=== PATIENT | male | born 1955 | race Caucasian/White ===

== ENCOUNTER → 2019-11-22 | Outpatient (CLI) | payer MEDICARE | END | disposition home or self-care (01) | LOC: EDBD → OIH 08:16 | PROVIDERS: ATTEND Internal Medicine | DX: M47.816 Spondylosis without myelopathy or radiculopathy, lumbar region (principal); M48.061 Spinal stenosis, lumbar region without neurogenic claudication; M25.78 Osteophyte, vertebrae; M75.101 Unspecified rotator cuff tear or rupture of right shoulder, not specified as traumatic | CPT/HCPCS: 72100; 73030 ==

== ENCOUNTER 2020-01-27 12:54 | Inpatient (IN) | payer MEDICARE ==
[~2020-01-27] VITALS: Ht 185.4 cm; Wt 104.2 kg
[2020-01-27] MEDS ORDERED: ONDANSETRON HCL 4 MG/2 ML VIAL ONE (13:09)
[2020-01-27] MEDS ORDERED: MORPHINE SULFATE 4 MG/1ML SYG ONE ×3 (13:09→15:10)
[2020-01-27 13:38] LABS: BASOPHILS % (AUTO) 0.4 % (0.0-5.0); EOSINOPHILS % (AUTO) 0.9 % (0.0-8.0); HEMATOCRIT 39.1 % (42-54); LYMPHOCYTES % (AUTO) 35.6 % (21.0-51.0); MEAN CORPUSCULAR HEMOGLOBIN 32.3 pg (27.0-33.0); MEAN CORPUSCULAR HGB CONC 35.5 g/dL (32.0-36.0); MEAN CORPUSCULAR VOLUME 90.7 fL (79-99); NEUTROPHILS % (AUTO) 54.6 % (40.0-77.0); PLATELET COUNT (AUTO) 302 K/uL (130-400); RED BLOOD CELL COUNT(AUTO) 4.31 MIL/uL (4.50-6.20); RED CELL DISTRIBUTION WIDTH 13.9 % (11.0-15.5)
[2020-01-27] MEDS ORDERED: DIAZEPAM 5 MG/ML 2 ML SYG ONE (13:59)
[2020-01-27] MEDS ORDERED: DIAZEPAM 5 MG/ML 2 ML SYG IVP ONE (14:00)
[2020-01-27 14:03] LABS: CREATININE 1.4 mg/dL (0.5-1.5); POTASSIUM 3.4 mmol/L (3.5-5.1)
[2020-01-27 14:04] LABS: INR 0.96 (0.85-1.15); PARTIAL THROMBOPLASTIN TIME 26.4 SEC (26.3-35.5); PROTHROMBIN TIME 10.4 SEC (9.6-11.6)
[2020-01-27] MEDS ORDERED: KETOROLAC TROMETHAMINE 15MG/ML ONE (15:09)
[2020-01-27] MEDS: LACTATED RINGERS 1000ML 1,000 ML IV SCH (15:10)
[2020-01-27] MEDS ORDERED: ACETAMINOPHEN-CODEINE 300/30MG TAB PO PRN (15:15)
[2020-01-27] MEDS ORDERED: POTASSIUM CHLORIDE 20MEQ/100ML 100 ML IV PRN (15:15)
[2020-01-27] MEDS ORDERED: MORPHINE SULFATE 2 MG/ML 1ML SYG IV PRN (15:15)
[2020-01-27] MEDS ORDERED: POTASSIUM CHLORIDE 10% ELIXIR 20 MEQ/15 ML UDCUP PO PRN (15:15)
[2020-01-27] MEDS ORDERED: ACETAMINOPHEN 325 MG TAB PO PRN ×2 (15:15)
[2020-01-27] MEDS ORDERED: MAGNESIUM 2GM PREMIX 50ML 50 ML IV PRN (15:15)
[2020-01-27] MEDS ORDERED: ZOLPIDEM TARTRATE 5 MG TAB PO PRN (15:15)
[2020-01-27] MEDS ORDERED: LACTULOSE 20 GM/30 ML UDCUP PO PRN (15:15)
[2020-01-27] MEDS ORDERED: HYDRALAZINE HCL 20 MG/ML VIAL IV PRN (15:15)
[2020-01-27] MEDS ORDERED: POTASSIUM CHLORIDE 20 MEQ ERTAB PO PRN (15:15)
[2020-01-27] MEDS ORDERED: ONDANSETRON HCL 4 MG/2 ML VIAL IV PRN (15:15)
[2020-01-27] MEDS ORDERED: DiphenhydrAMINE HCL 50 MG/ML VIAL IV PRN (15:15)
[2020-01-27] MEDS ORDERED: LIDOCAINE HCL-MPF 1% 2ML VIAL IV PRN (15:15)
[2020-01-27] MEDS ORDERED: MAG HYDROX/AL HYDROX/SIMETH ES 30 ML SUSP UDCUP PO PRN (15:15)
[2020-01-27] MEDS ORDERED: DIPHENHYDRAMINE HCL 25 MG CAPSULE PO PRN (15:15)
[2020-01-27] MEDS ORDERED: POTASSIUM CHLORIDE 20 MEQ ERTAB PO ONE (15:43)
[2020-01-27] MEDS ORDERED: LACTATED RINGERS 1000ML 1,000 ML IV ONE (15:45)
[2020-01-27 17:00] VITALS: BP 128/79
[2020-01-27] MEDS: MORPHINE SULFATE 4 MG/1ML SYG IV PRN ×2 (17:47→23:20)
[2020-01-27 20:04] VITALS: BP 102/76
[2020-01-28] VITALS (25 sets, daily range): BP systolic 76–117; BP diastolic 41–80
[2020-01-28] MEDS: MORPHINE SULFATE 4 MG/1ML SYG IV PRN (03:59)
[2020-01-28 05:33] LABS: MAGNESIUM 1.6 mg/dL (1.80-2.40); THYROID STIMULATING HORMONE 1.79 uIU/mL (0.36-3.74)
[2020-01-28 08:44] LABS: MEAN CORPUSCULAR HEMOGLOBIN 31.7 pg (27.0-33.0); MEAN CORPUSCULAR HGB CONC 33.6 g/dL (32.0-36.0); MEAN CORPUSCULAR VOLUME 94.2 fL (79-99); PLATELET COUNT (AUTO) 210 K/uL (130-400); RED BLOOD CELL COUNT(AUTO) 3.82 MIL/uL (4.50-6.20); RED CELL DISTRIBUTION WIDTH 14.4 % (11.0-15.5); WHITE BLOOD COUNT (AUTO) 7.6 K/uL (4.8-10.8)
[2020-01-28] MEDS ORDERED: MAGNESIUM 2GM PREMIX 50ML 50 ML IV SCH (08:45)
[2020-01-28] MEDS: FAMOTIDINE/PF 20 MG/2 ML VIAL IV SCH (09:02)
[2020-01-28 09:10] LABS: CREATININE 1.1 mg/dL (0.5-1.5); POTASSIUM 4.3 mmol/L (3.5-5.1)
[2020-01-28] MEDS: LACTATED RINGERS 1000ML 1,000 ML IV SCH ×4 (11:10→21:25)
[2020-01-28] MEDS ORDERED: SUCCINYLCHOLINE CHLORIDE 20 MG/ML 10 ML VIAL ONE (12:19)
[2020-01-28] MEDS ORDERED: LIDOCAINE PF 2% 5ML ABBOJECT ONE (12:19)
[2020-01-28] MEDS ORDERED: ROCURONIUM 10MG/1ML SYR 10 MG/ML ML ONE (12:20)
[2020-01-28] MEDS ORDERED: FENTANYL CITRATE PF 50 MCG/1 ML 2ML VIAL ONE (12:20)
[2020-01-28] MEDS ORDERED: PROPOFOL 10 MG/ML 20ML VIAL IV ONE (12:20)
[2020-01-28] MEDS: CEFAZOLIN SODIUM 1 GM VIAL IVP SCH ×3 (12:45→21:23)
[2020-01-28] MEDS ORDERED: BUPIVACAINE/PF 0.5% 30ML VIAL ONE (12:54)
[2020-01-28] MEDS ORDERED: EPHEDRINE SULFATE 50 MG/ML AMPULE ONE (13:15)
[2020-01-28] MEDS ORDERED: ONDANSETRON HCL 4 MG/2 ML VIAL ONE (13:18)
[2020-01-28] MEDS ORDERED: GLYCOPYRROLATE 1 MG/5 ML SYRINGE ONE (13:19)
[2020-01-28] MEDS ORDERED: KETOROLAC TROMETHAMINE 30MG/ML ONE (13:19)
[2020-01-28] MEDS ORDERED: NEOSTIGMINE 5MG/5ML SYR IV ONE ×2 (13:19→13:24)
[2020-01-28] MEDS ORDERED: MEPERIDINE-PF 25 MG/ML SYG ONE ×2 (13:21→14:21)
[2020-01-28] MEDS ORDERED: ESMOLOL HCL 10 MG/ML 10 ML VIAL ONE (13:31)
--- NOTE | 2020-01-28 16:38 | NUR ---
CM NOTE/IA MEET WITH PATIENT IN ROOM. PER PATIENT, IS INDEPENDENT WITH ADLS, DRIVES, NO HH OR PROVIDER, NO DME IN USE AND WILL RETURN HOME ONCE READY TO BE DISCHARGED FROM HOSPITAL. PER PATIENT, DOES NOT WANT TO LIST A NEXT OF KIN. WHEN ASKED HOW HE WILL GET HOME FROM HOSPITAL, PATIENT STATED HES GOOD FRIENDS WITH HIS NEIGHBORS WHICH WILL GIVE HIM RIDE. PRIMARY NURSE, AISSATOU FABIAN, MADE AWARE OF CONVERSATION. Addendum: 01/28/20 at 1640 by MICA DAO RN CM Amended: Links added.
[2020-01-28] MEDS ORDERED: SODIUM CHLORIDE 0.9% 1000ML 1,000 ML IV SCH (19:30)
[2020-01-28] MEDS: SODIUM CHLORIDE 0.9% 1000ML 1,000 ML IV SCH (20:41)
[2020-01-28] MEDS ORDERED: METOPROLOL TARTRATE 25 MG TAB ONE (21:14)
[2020-01-29 00:04] VITALS: BP 114/68
[2020-01-29] MEDS: SODIUM CHLORIDE 0.9% 1000ML 1,000 ML IV SCH (03:39)
[2020-01-29 04:04] VITALS: BP 92/50
[2020-01-29] MEDS: LACTATED RINGERS 1000ML 1,000 ML IV SCH (05:21)
[2020-01-29] MEDS: CEFAZOLIN SODIUM 1 GM VIAL IVP SCH (05:21)
[2020-01-29 05:38] LABS: HEMATOCRIT 32.9 % (42-54); MEAN CORPUSCULAR HEMOGLOBIN 31.7 pg (27.0-33.0); MEAN CORPUSCULAR HGB CONC 34.3 g/dL (32.0-36.0); MEAN CORPUSCULAR VOLUME 92.4 fL (79-99); PLATELET COUNT (AUTO) 204 K/uL (130-400); RED BLOOD CELL COUNT(AUTO) 3.56 MIL/uL (4.50-6.20); RED CELL DISTRIBUTION WIDTH 14.1 % (11.0-15.5); WHITE BLOOD COUNT (AUTO) 7.3 K/uL (4.8-10.8)
[2020-01-29 05:45] LABS: CREATININE 1.2 mg/dL (0.5-1.5); MAGNESIUM 1.9 mg/dL (1.80-2.40); POTASSIUM 4.2 mmol/L (3.5-5.1)
[2020-01-29 06:30] LABS: TROPONIN I 2.02 ng/mL (0.00-0.06)
[2020-01-29 06:50] LABS: BAND NEUTROPHILS % (MANUAL) 1 % (0-2); BASOPHILS % (MANUAL) 1 % (0-2); LYMPHOCYTES % (MANUAL) 5 % (22-44); MAN.DIFF COMMENT-IMPRESSION MANUAL DIFFERENTIAL; MONOCYTES % (MANUAL) 7 % (2-9); SEGMENTED NEUTROPHILS % 86 % (40-70)
[2020-01-29 06:52] LABS: PLATELET MORPHOLOGY COMMENT ADEQUATE
[2020-01-29] MEDS: ENOXAPARIN SODIUM 100 MG/1 ML SQ SCH ×2 (06:59→09:00)
[2020-01-29] MEDS ORDERED: ASPIRIN 325 MG TABLET PO SCH (07:00)
[2020-01-29] MEDS ORDERED: ASPIRIN 325MG EC TAB 325 MG TABLET.DR PO SCH (07:00)
--- NOTE | 2020-01-29 08:25 | NUR ---
Received pt from 3rd floor report obtained from [facility] Last patient in bed no SOB, denies any chest pain, AAOX3, iv intact. Lungs clear.
--- NOTE | 2020-01-29 08:50 | NUR ---
DR. MENDIETA PAGED RE; WIDE QRS TACH TACHY 130'S WITH OCCASIONAL PVCS AND ST WAVE ABNORMALITY. S/P POST LEFT INGUINAL HERNIA REPAIR. PT WITH HISTORY OF CARDIAC STENTS, CAD AND HYPERLIPIDEMIA. PENDING CALL BACK.
[2020-01-29] MEDS ORDERED: ENOXAPARIN SODIUM 1 MG/KG SQ SCH (09:00)
[2020-01-29] MEDS ORDERED: METOPROLOL TARTRATE 25 MG TAB PO SCH (09:00)
[2020-01-29] MEDS: FAMOTIDINE/PF 20 MG/2 ML VIAL IV SCH (09:43)
[2020-01-29 09:56] VITALS: BP 113/67
--- NOTE | 2020-01-29 10:58 | NUR ---
PT REFUSING CARDIOLOGY CONSULT PA-MR YAÑEZ AT BEDSIDE STATES PATIENT REFUSING CONSULT RISKS AT HAZARDS WERE EXPLAIN AT BEDSIDE AND PATIENT UNDERSTANDS RISKS AND HAZARDS OF REFUSAL AND LEAVING AGAINST MEDICAL ADVICE.
--- NOTE | 2020-01-29 10:59 | NUR ---
YOUTH TEACHER WHITE AWARE OF PT DECISION TO LEAVE AMA STATES OKAY JUST INFORM PT OF RISKS OF LEAVING AMA.
--- NOTE | 2020-01-29 11:06 | NUR ---
PATIENT REFUSING SET OF CARDIAC ENZYMES, GUNITE MIXER WHIT AWARE OF REFUSAL.
--- NOTE | 2020-01-29 11:07 | NUR ---
PAGED PRIMARY DOCTOR TO TALK TO PT PENDING CALL BACK FORM DR. Aretha ANTON.
--- NOTE | 2020-01-29 11:30 | NUR ---
DR. GA CALLED BACK STATES PATIENT IS NEW TO HIM AND HE ADVISED PATIENT THAT IF HE GOES HOME HE WILL ALONE SINCE HE DOES NOT HAVE ANY FAMILY WITH HIM. PATIENT ADVISED STATES OKAY I WILL STAY. ILL LET THEM DRAW BLOOD BUT I DO NOT WANT TO SEE CARDIOLOGISTS BECAUSE THEY WILL ONLY SAY THAT I HAD A HEART ATTACK I DO NOT NEED THEM TO TELL ME AGAIN.
[2020-01-29 11:56] VITALS: BP 156/84
--- NOTE | 2020-01-29 12:40 | NUR ---
PT SECOND TROPONIN IS BACK. INSIDE SALES EXECUTIVE WHITE AWARE. INFORM PATIENT IF HE WANTS TO LEAVE. PATIENT WAS INFORMED THAT HIS CE KEEP GOING UP AND THAT IT MEANS THAT HIS HEARTS CONDITION IS WORSENING AND THAT IF HE LEAVES HE MAY , HE STATES OKAY WELL IT WONT BE YOUR FAULT SINCE ITS MY DECISION AND I FEEL PERFECTLY FINE.
--- NOTE | 2020-01-29 12:42 | NUR ---
PT AGREEING TO RECEIVE CARE STATES I WILL STAY TILL 1PM FOR YOU GUYS TO TREAT ME THEN ILL LEAVE, PATIENT WAS INSTRUCTED THAT HE NEEDED TO STAY OVER NIGHT TO MONITOR THE COURSE OF HIS CONDITION HE STATED THAT I DONT CARE I WILL BE GONE AT 1PM.
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
--- NOTE | 2020-01-29 12:49 | NUR ---
PATIENT SIGNED AMA FORM PT LEAVING AMA, PATIENT WAS INSTRUCTED THAT HE HAD A SURGERY YESTERDAY AND THAT I WILL GIVE HIM INSTRUCTIONS ON HOW TO TAKE CARE OF IT, PATIENT SEEMS TO BE IN A ALEXANDER HE SIGNED PAPER AMA AND STATES I NOW HOW TO TAKE CARE OF IT I AM NOT DUMB ILL JUST CHANGE THE GAUZES AND KEEP IT DRY LIKE YOU TOLD ME EARLIER. ACCORDING TO THE PATIENT'S FRIEND HER NAME IS SHER. PATIENT WAS EDUCATED TO KEEP INCISION DRY AND CLEAN AND TO SEE DR. MOSHER IN 1 WEEK AND TO SEE HIS PRIMARY DOCTOR DR. GA TOMORROW FOR TRANSITION OF CARE. HE STATES YEAH YEAH NO HARD FEELINGS YOU ARE A GOOD NURSE. BUT I HAVE TO LEAVE IM OKAY AND I KNOW HOW TO TAKE CARE OF MYSELF. IV OUT INTACT, AAOX3, EVEN TO PRESIDENT'S NAME. PATIENT DENIES ANY CHEST PAIN, OR SOB, INCISION APPEARED CLEAN AND DRY. DEMANDING THE WASTE ELIMINATION TO TAKE HIM DOWN TO ER.
--- NOTE | 2020-01-29 12:50 | NUR ---
STEAM CLEAN MACHINE OPERATOR ANTIONE AWARE OF PT'S DECISION TO LEAVE AMA. AND THAT PATIENT HAS BEEN INFORMED AND CAUTIONED OF THE RISKS AND HAZARDS OF LEAVING AMA 4 TIMES SPENDING 30MINUTES EACH TIME PATIENT WAS INFORMED.
== END 2020-01-29 13:10 | disposition left against medical advice (07) | DRG 352 ==
LOC: EDH 12:54 → EDHIP 15:10 → 3AH 17:00 → 2AH 01-29 08:02
PROVIDERS: ADMIT Internal Medicine; ATTEND Internal Medicine
PROC: 0YU60JZ Supplement Left Inguinal Region with Synthetic Substitute, Open Approach (ICD-10-PCS; principal; 2020-01-28 12:25)
DX: K40.30 Unilateral inguinal hernia, with obstruction, without gangrene, not specified as recurrent (principal); I25.10 Atherosclerotic heart disease of native coronary artery without angina pectoris; N18.3 Chronic kidney disease, stage 3 (moderate); F17.210 Nicotine dependence, cigarettes, uncomplicated; E83.42 Hypomagnesemia; R32 Unspecified urinary incontinence; Z60.2 Problems related to living alone; E78.5 Hyperlipidemia, unspecified; R00.0 Tachycardia, unspecified; I25.2 Old myocardial infarction; Z95.5 Presence of coronary angioplasty implant and graft
CPT/HCPCS: 36415; 71045; 80048; 80061; 82550; 83605; 83735; 83874; 84100; 84443; 84484; 85025; 85027; 85610; 85730; 88302; 93005; G0378; J0330; J0690; J1650; J1885; J2001; J2175; J2270; J2405; J2704; J2710; J3010; J3360; J3475; J3490; J7030; J7120

== ENCOUNTER 2023-10-06 22:27 | Emergency (ER) | payer OTHER ==
[~2023-10-06] VITALS: Ht 185.4 cm; Wt 113.4 kg
[~2023-10-06 22:27] MED LIST: APIX5TAB PO; BACL10TA PO; FLUT1AER IH; FURO40TA5 PO; GABA300T25 PO; ISOS30TA92 PO; LISI20TA24 PO; METO50 PO; SPIR25TA6 PO
[2023-10-06] MEDS ORDERED: IPRATROPIUM/ALBUTEROL SULFATE 3 ML SOLUTION IH ONE (23:00)
[2023-10-06] MEDS ORDERED: FUROSEMIDE 40MG VIAL IV ONE (23:00)
[2023-10-06] MEDS ORDERED: SOLU-MEDROL 125MG VIAL IVP ONE (23:00)
[2023-10-06 23:01] VITALS: PULSE 93; RESP 16
[2023-10-06 23:10] LABS: BASOPHILS # (AUTO) 0.03 K/uL (0.00-0.20); BASOPHILS % (AUTO) 0.7 % (0.0-5.0); EOSINOPHILS # (AUTO) 0.05 K/uL (0.00-0.70); EOSINOPHILS % (AUTO) 1.1 % (0.0-8.0); HEMATOCRIT 29.6 % (42-54); IMMATURE GRANULOCYTE ABSOLUTE 0.03 K/uL (0-1); LYMPHOCYTES # (AUTO) 1.1 K/uL (1.0-4.8); LYMPHOCYTES % (AUTO) 24.1 % (21.0-51.0); MEAN CORPUSCULAR HEMOGLOBIN 33.1 pg (27.0-33.0); MEAN CORPUSCULAR HGB CONC 35.1 g/dL (32.0-36.0); MEAN CORPUSCULAR VOLUME 94.3 fL (79-99); MONOCYTES # (AUTO) 0.5 K/uL (0.1-1.0); MONOCYTES % (AUTO) 10.5 % (3.0-13.0); NEUTROPHILS # (AUTO) 2.9 K/uL (1.8-7.7); NEUTROPHILS % (AUTO) 62.9 % (40.0-77.0); PLATELET COUNT (AUTO) 215 K/uL (130-400); RED BLOOD CELL COUNT(AUTO) 3.14 MIL/uL (4.50-6.20); RED CELL DISTRIBUTION WIDTH 16.6 % (11.0-15.5); WHITE BLOOD COUNT (AUTO) 4.6 K/uL (4.8-10.8)
[2023-10-06 23:20] LABS: CREATININE 1.4 mg/dL (0.5-1.5); POTASSIUM 3.8 mmol/L (3.5-5.1)
[2023-10-06 23:24] LABS: ALBUMIN 3.4 g/dL (3.5-5.0); BILIRUBIN,TOTAL 1.6 mg/dL (0.2-1.0); TOTAL PROTEIN, SERUM 6.9 g/dL (6.0-8.3)
[2023-10-07 00:42] VITALS: BP 128/60; PULSE 99; RESP 19; O2SAT 99
[2023-10-07] MEDS ORDERED: ALBU90AE2 IH (01:00)
[2023-10-07] MEDS ORDERED: AZIT500T2 PO (01:00)
[2023-10-07] MEDS ORDERED: DIPH1TAB PO (01:01)
== END 2023-10-07 01:40 | disposition home or self-care (01) ==
LOC: EDBD 22:27 → EDH 22:27
DX: J44.1 Chronic obstructive pulmonary disease with (acute) exacerbation (principal); I11.0 Hypertensive heart disease with heart failure; I50.9 Heart failure, unspecified; E78.00 Pure hypercholesterolemia, unspecified; F17.210 Nicotine dependence, cigarettes, uncomplicated; Z79.01 Long term (current) use of anticoagulants; Z79.51 Long term (current) use of inhaled steroids; Z79.899 Other long term (current) drug therapy; Z88.8 Allergy status to other drugs, medicaments and biological substances; Z91.041 Radiographic dye allergy status; Z91.148 Patient's other noncompliance with medication regimen for other reason
CPT/HCPCS: 99285; 71045; 84484; 80053; 85025; 36415; 93005; 94640; 96374; 96375; J2930; J1940

== ENCOUNTER 2023-12-29 22:36 | Emergency (ER) | payer OTHER ==
[~2023-12-29] VITALS: Ht 180.3 cm; Wt 100.0 kg
[~2023-12-29 22:36] MED LIST changes: +ALBU90AE2 IH; +DIPH1TAB PO; -LISI20TA24 PO; +NITR0.4T50 SL; +ROSU20TA73 PO; +[UNRECOGNIZED DRUG - OTHER]
[2023-12-29] MEDS ORDERED: AMIODARONE 150MG VIAL IV ONE (22:37)
[2023-12-29] MEDS ORDERED: SODIUM BICARB 8.4% 50ML SYRINGE IVP ONE (22:37)
[2023-12-29] MEDS ORDERED: NOREPINEPHRINE BITARTRATE 1 MG/1 ML ML IV ONE (22:37)
[2023-12-29] MEDS ORDERED: ATROPINE 1MG SYG IVP ONE (22:37)
[2023-12-29 22:51] LABS: ABG BASE EXCESS 2.5 mmol/L (-2.0-3.0); ABG HCO3 25.9 mmol/L (21.0-28.0); ABG OXYGEN SATURATION 96.9 % (95.0-99.0); ABG PCO2 35 mmHg (35-48); ABG PH 7.486 (7.35-7.450); CARBON MONOXIDE 0.4; HHb 3.1; PO2, ARTERIAL BG 98.8 mmHg (83.0-108.0); VENT MODE, BG NRB (ROOM AIR)
[2023-12-29 22:57] VITALS: PULSE 133; RESP 30
[2023-12-29 23:03] VITALS: PULSE 140; RESP 33; O2SAT 100
[2023-12-29 23:10] LABS: BASOPHILS # (AUTO) 0.04 K/uL (0.00-0.20); BASOPHILS % (AUTO) 0.6 % (0.0-5.0); EOSINOPHILS # (AUTO) 0.04 K/uL (0.00-0.70); EOSINOPHILS % (AUTO) 0.6 % (0.0-8.0); HEMATOCRIT 23.2 % (42-54); IMMATURE GRANULOCYTE ABSOLUTE 0.13 K/uL (0-1); LYMPHOCYTES # (AUTO) 1.5 K/uL (1.0-4.8); LYMPHOCYTES % (AUTO) 21.2 % (21.0-51.0); MEAN CORPUSCULAR HEMOGLOBIN 32.4 pg (27.0-33.0); MEAN CORPUSCULAR HGB CONC 34.1 g/dL (32.0-36.0); MEAN CORPUSCULAR VOLUME 95.1 fL (79-99); MONOCYTES # (AUTO) 0.6 K/uL (0.1-1.0); MONOCYTES % (AUTO) 8.4 % (3.0-13.0); NEUTROPHILS # (AUTO) 4.7 K/uL (1.8-7.7); NEUTROPHILS % (AUTO) 67.3 % (40.0-77.0); PLATELET COUNT (AUTO) 306 K/uL (130-400); RED BLOOD CELL COUNT(AUTO) 2.44 MIL/uL (4.50-6.20); RED CELL DISTRIBUTION WIDTH 16.8 % (11.0-15.5); WHITE BLOOD COUNT (AUTO) 6.9 K/uL (4.8-10.8)
[2023-12-29] MEDS: ACETAMINOPHEN 650 MG SUPPOSITORY RC ONE (23:10)
[2023-12-29 23:12] LABS: RAPID GROUP A STREP negative (NEGATIVE)
[2023-12-29 23:14] LABS: INFLUENZA TYPE A Negative For Type A (NEGATIVE); INFLUENZA TYPE B Negative For Type B (NEGATIVE)
[2023-12-29] MEDS: NOREPINEPHRIN 4MG/NS 250ML 250 ML IV ONE (23:14)
[2023-12-29] MEDS: FENTANYL 1000MCG+NS 100ML 100 ML IV ONE (23:15)
[2023-12-29] MEDS: ROCURONIUM BROMIDE 10MG/1ML 5ML VL ONE (23:15)
[2023-12-29 23:16] LABS: APPEARANCE,URINE CLEAR (CLEAR); BILIRUBIN,URINE NEGATIVE (NEGATIVE); COLOR,URINE LIGHT-YELLOW (YELLOW); GLUCOSE, URINE (UA) NEGATIVE (NEGATIVE); KETONES,URINE NEGATIVE (NEGATIVE); LEUKOCYTE ESTERASE ,URINE NEGATIVE Leu/uL (NEGATIVE); NITRATE,URINE NEGATIVE (NEGATIVE); OCCULT BLOOD,URINE NEGATIVE (NEGATIVE); PROTEIN,URINE NEGATIVE (NEGATIVE); UROBILINOGEN,URINE 0.2 mg/dL (0.2-1.0)
[2023-12-29 23:20] LABS: SARS-CoV-2, RNA, NAAT POSITIVE SARS CoV-2 (NEGATIVE)
[2023-12-29 23:23] LABS: INR 1.22 (0.85-1.15); PROTHROMBIN TIME 14.2 SEC (9.6-11.6)
[2023-12-29 23:24] LABS: PARTIAL THROMBOPLASTIN TIME 39.9 SEC (26.3-35.5)
[2023-12-29 23:26] LABS: ADD UA MICROSCOPIC NO
[2023-12-29 23:30] LABS: CREATININE 1.3 mg/dL (0.5-1.5); POTASSIUM 3.3 mmol/L (3.5-5.1)
[2023-12-29 23:32] VITALS: PULSE 133; O2SAT 100
[2023-12-29] MEDS: DEXAMETHASONE SOD PHOSPHATE 4 MG/ML 1ML VIAL IV ONE (23:33)
[2023-12-29] MEDS: FAMOTIDINE 20MG VIAL IV ONE (23:33)
[2023-12-29] MEDS: METOCLOPRAMIDE 10 MG/2 ML VIAL IVP ONE (23:34)
[2023-12-29] MEDS: 0.9%NACL 1000ML 2,259 ML IV ONE ×2 (23:34→23:35)
[2023-12-29] MEDS: ENOXAPARIN SODIUM 100 MG/1 ML SQ ONE (23:35)
[2023-12-29] MEDS: CEFTRIAXONE 2GM VIAL IVPB ONE (23:35)
[2023-12-29] MEDS: ETOMIDATE 20MG VIAL IVP ONE (23:42)
[2023-12-29] MEDS: ETOMIDATE 20MG VIAL ONE (23:43)
[2023-12-29 23:44] LABS: ALBUMIN 2.1 g/dL (3.5-5.0); BILIRUBIN,TOTAL 1.4 mg/dL (0.2-1.0); TOTAL PROTEIN, SERUM 6.4 g/dL (6.0-8.3)
[2023-12-29 23:45] LABS: MAGNESIUM 1.6 mg/dL (1.80-2.40); THYROID STIMULATING HORMONE 4.58 uIU/mL (0.36-3.74)
[2023-12-29] MEDS: ROCURONIUM BROMIDE 10MG/1ML 5ML VL IVPB SCH (23:45)
[2023-12-29] MEDS: ALBUTEROL 0.083% 2.5 MG/3 ML INH IH ONE (23:47)
[2023-12-29] MEDS: AMIODARONE 150MG VIAL ONE ×2 (23:48→23:51)
[2023-12-29] MEDS: AMIODARONE 900MG VIAL IV ONE (23:48)
[2023-12-29] MEDS: MAGNESIUM 2GM PREMIX 50ML 50 ML IV ONE (23:50)
[2023-12-30] MEDS: PHARMACY COMMUNICATION MISC SCH
[2023-12-30] MEDS: VASOPRESSIN 20 UNITS/ML 1ML VIAL ONE (00:01)
[2023-12-30 00:36] VITALS: BP 96/42; PULSE 98; RESP 14; O2SAT 99
[2023-12-30] MEDS: MIDAZOLAM 50MG-0.9% NS 50ML 50 ML IV SCH (02:09)
[2023-12-30] MEDS: FENTANYL 1000MCG+NS 100ML 100 ML IV SCH (02:09)
[2023-12-30] MEDS: PHENYLEPHRINE HCL 10 MG/ML 1ML VIAL IV ONE (02:16)
[2023-12-30] MEDS: NOREPINEPHRIN 4MG/NS 250ML 250 ML IV SCH (02:16)
[2023-12-30] MEDS: EPINEPHRINE 1MG/10ML(1:10,000) 0.1 MG/ML SYG ONE (02:16)
[2023-12-30] MEDS: VASOPRESSIN 20 UNITS in 0.9%NACL 100ML 100 ML IV SCH (02:17)
[2023-12-30] MEDS: PHENYLEPHRINE HCL 50 MG in 0.9% NACL 250ML 250 ML IV PRN (02:17)
== END 2023-12-30 00:49 ==
LOC: EDH 22:36
DX: U07.1 COVID-19 (principal); J96.90 Respiratory failure, unspecified, unspecified whether with hypoxia or hypercapnia; F17.200 Nicotine dependence, unspecified, uncomplicated; Z79.01 Long term (current) use of anticoagulants; Z79.51 Long term (current) use of inhaled steroids; Z79.899 Other long term (current) drug therapy; Z88.8 Allergy status to other drugs, medicaments and biological substances; Z91.041 Radiographic dye allergy status
CPT/HCPCS: 99285; 84443; 82435; 82550; 82947; 83735; 84484; 84132; 84295; 80053; 82803; 83880; 82140; 85025; 85378; 85610; 85730; 85018; 86850; 86900; 86901; 87040 ×2; 87088; 87880; 87420; 87804 ×2; 82948; 83605 ×2; 82010; 81003; 36415; 87635; 71045; 96365; 96366; 96372; 96375; 93005; 31500; 94640; 94660; 36600; J3475; J3490 ×8; J3010; J7030; J0696; J0461; J1650; J1100; J2765; J0282 ×4; A9900; J0171; J2371; 94002